=== PATIENT | female | born 1980 | race Caucasian/White ===

== ENCOUNTER 2021-10-01 16:27 | Emergency (ER) | payer OTHER ==
[2021-10-01 18:32] VITALS: RESP 20; TEMP 100.4
[2021-10-01] MEDS ORDERED: IBUPROFEN 800 MG TAB PO STA (18:49)
--- NOTE | 2021-10-01 18:50 | ED ---
General Adult HPI - General Chief complaint: Upper Respiratory Infection Stated complaint: covid+/wants infusion Time Seen by Provider: 10/01/21 18:40 Source: patient, RN notes reviewed Mode of arrival: ambulatory Limitations: no limitations - History of Present Illness Initial comments: 41-year-old well-appearing female, alert and oriented 4, presents to the emergency room for monoclonal antibodies infusion. She states that she developed symptoms a week ago on Saturday with fever, cough and headache. She tested positive at work on Saturday. She has not been vaccinated. She does have a history of asthma. She denies any chest pain but states that her lungs feel tight when she takes a deep breath. She denies any nausea vomiting diarrhea. -: week(s) (1) Location: chest Radiation: non-radiation Severity scale (1-10): 4 Quality: aching, other (tight) Consistency: intermittent Improves with: none Worsens with: none Associated Symptoms: cough, fever/chills Treatments Prior to Arrival: other (tylenol) - Related Data Home Medications Medication Instructions Recorded Confirmed Acetaminophen [Tylenol] 1,000 mg PO Q4-6H PRN 10/01/21 10/01/21 Aspirin EC [Ecotrin Low Dose] 81 mg PO DAILY 10/01/21 10/01/21 Azithromycin [Zithromax Z-pack (6 See Taper PO DAILY 10/01/21 10/01/21 tabs)] Dexamethasone [Decadron] 4 mg PO BID 10/01/21 10/01/21 Guaifen/Dextromethorphan/PE 20 ml PO Q4-6H PRN 10/01/21 10/01/21 [Mucinex Fast-Max Congest-Cough] Ivermectin 15 mg PO DAILY 10/01/21 10/01/21 Previous Rx's Medication Instructions Recorded Albuterol Inhaler [Ventolin Hfa 2 puff INHALATION RT-QID #8 gm 10/01/21 Inhaler] Allergies Allergy/AdvReac Type Severity Reaction Status Date / Time amoxicillin Allergy Unknown Verified 10/01/21 19:44 bupropion [From Wellbutrin] Allergy Unknown Verified 10/01/21 19:44 Review of Systems ROS Statement: Those systems with pertinent positive or pertinent negative responses have been documented in the HPI. ROS Other: All systems not noted in ROS Statement are negative. Past Medical History Past Medical History: Asthma History of Any Multi-Drug Resistant Organisms: None Reported Past Surgical History: Cholecystectomy Past Psychological History: No Psychological Hx Reported Smoking Status: Never smoker Past Alcohol Use History: Rare Past Drug Use History: None Reported General Exam Limitations: no limitations General appearance: alert, in no apparent distress Head exam: Present: atraumatic, normocephalic, normal inspection Eye exam: Present: normal appearance, EOMI. Absent: scleral icterus, conjunctival injection ENT exam: Present: normal exam, normal oropharynx, mucous membranes moist Neck exam: Present: normal inspection, full ROM. Absent: tenderness, meningismus, lymphadenopathy, thyromegaly Respiratory exam: Present: normal lung sounds bilaterally. Absent: respiratory distress, wheezes, rales, rhonchi, stridor, chest wall tenderness, accessory muscle use Cardiovascular Exam: Present: regular rate, normal rhythm, normal heart sounds. Absent: systolic murmur, diastolic murmur, rubs, gallop, clicks GI/Abdominal exam: Present: soft, normal bowel sounds. Absent: distended, tenderness, guarding, rebound, rigid Extremities exam: Present: normal inspection, full ROM, normal capillary refill. Absent: tenderness, pedal edema, joint swelling, calf tenderness Back exam: Present: normal inspection, full ROM. Absent: tenderness, CVA tenderness (R), CVA tenderness (L), rash noted Neurological exam: Present: alert, oriented X3 Psychiatric exam: Present: normal affect, normal mood Skin exam: Present: warm, dry, intact, normal color. Absent: rash, cyanosis, diaphoretic, petechiae, pallor Course Vital Signs 10/01/21 10/01/21 18:27 20:05 Temperature 100.4 F H Pulse Rate 86 74 Respiratory 20 20 Rate Blood Pressure 107/77 125/73 O2 Sat by Pulse 97 96 Oximetry Medical Decision Making - Medical Decision Making 41-year-old well-appearing female patient presents to the emergency room for monoclonal antibodies infusion. She states that she tested positive for coronav irus on Saturday. She has continued to have fever and cough. She does have a history of asthma. Oxygen saturation is 97% on room air. She tolerated the monoclonal antibodies infusion well. She was given an albuterol inhaler as she states hers has . She was instructed to return to the emergency room with any new or worsening symptoms. Case discussed with Dr. Gonzalez. Disposition Clinical Impression: COVID-19 Disposition: HOME SELF-CARE Condition: Good Instructions (If sedation given, give patient instructions): Coronavirus Disease 2019 (COVID-19) Additional Instructions: Tylenol and Motrin as needed for body aches or fevers. Follow-up with the primary care doctor next week. Return to the emergency room with any new or worsening symptoms. Prescriptions: Albuterol Inhaler [Ventolin Hfa Inhaler] 2 puff INHALATION RT-QID #8 gm Is patient prescribed a controlled substance at d/c from ED?: No Referrals: Nonstaff,Physician [Primary Care Provider] - 1-2 days Time of Disposition: 20:52
[2021-10-01] MEDS ORDERED: BAMLANIVIMAB (EUA) 700 MG, ETESEVIMAB (EUA) 1,400 MG in SODIUM CHLORIDE 0.9% 50 ML IVPB ONE (19:30)
[2021-10-01] MEDS ORDERED: SODIUM CHLORIDE 0.9% 50 ML IVPB ONE (20:00)
[2021-10-01 20:07] VITALS: BP 125/73; PULSE 74
== END 2021-10-01 21:27 | disposition home or self-care (01) ==
LOC: EC 16:27
DX: U07.1 COVID-19 (principal); J45.909 Unspecified asthma, uncomplicated; Z79.51 Long term (current) use of inhaled steroids
CPT/HCPCS: 99283; 96365; 96361; J3490